=== PATIENT | female | born 1950 ===

== ENCOUNTER 2016-11-28 10:24 | Emergency (ER) | payer MEDICAID ==
[2016-11-28 10:24] VITALS: BMI 29.9
[2016-11-28 10:30] VITALS: BP 160/75; PULSE 75; RESP 16; TEMP 98.6; O2SAT 100
--- NOTE | 2016-11-28 11:07 | ED PDOC ---
HPI: Allergic Reaction Time Seen by Provider: 11/28/16 10:39 Chief Complaint (Nursing): Abnormal Skin Integrity Chief Complaint (Provider): Abnormal Skin Integrity History Per: Patient History/Exam Limitations: no limitations Onset/Duration Of Symptoms: Days (x2) Current Symptoms Are (Timing): Still Present Additional Complaint(s): 66 y/o female with a past medical history of hypertension and hypercholesterolemia who presents to the emergency department with a complaint of redness, itchiness, and warmth to the face x2 days. Reports taking Benadryl last night. Denies new perfumes, detergents, or medications. PMd: Cristiana Eagle Past Medical History Reviewed: Historical Data, Nursing Documentation, Vital Signs Vital Signs: Last Vital Signs Temp 98.6 F 11/28/16 10:30 Pulse 75 11/28/16 10:30 Resp 16 11/28/16 10:30 BP 160/75 H 11/28/16 10:30 Pulse Ox 100 11/28/16 10:30 - Medical History PMH: Anxiety, Depression, Gastritis, HTN, Hypercholesterolemia Denies: Atrial Fibrillation, Bipolar Disorder, CAD, Cardia Arrhythmia, CHF, HIV, Mitral Valve Prolapse, Paranoia, Peripheral Edema, Post Traumatic Stress Disorder, Chronic Kidney Disease, Schizophrenia - Surgical History Surgical History: Denies: Appendectomy, CABG, Carotid Endarterectomy, Cholecystectomy, Coronary Stent, Pacemaker, Tonsillectomy - Family History Family History: States: Unknown Family Hx - Social History Current smoker - smoking cessation education provided: No Alcohol: None Drugs: Denies - Home Medications Home Medications: Ambulatory Orders Medication Instructions Recorded Aspirin [Aspirin EC] 81 mg PO DAILY 03/23/14 Naproxen 500 mg PO BID PRN 03/23/14 Omeprazole 40 mg PO DAILY 08/08/14 DiphenhydrAMINE [Benadryl] 50 mg PO Q6H PRN #20 cap 11/28/16 Famotidine [Pepcid] 20 mg PO BID #20 tab 11/28/16 Prednisone 50 mg PO DAILY #4 tab 11/28/16 - Allergies Allergies/Adverse Reactions: Allergies Allergy/AdvReac Type Severity Reaction Status Date / Time iodine Allergy RASH Verified 11/28/16 11:04 iron AdvReac SHORTNESS Verified 11/28/16 11:04 OF BREATH shellfish derived AdvReac SHORTNESS Verified 11/28/16 11:04 OF BREATH Review of Systems ROS Statement: Except As Marked, All Systems Reviewed And Found Negative Skin: Positive for: Other (Itchiness, warmth, and redness of the face. No new perfumes, detergents, or medications. ) Physical Exam - Reviewed Nursing Documentation Reviewed: Yes Vital Signs Reviewed: Yes - Physical Exam Appears: Positive for: Non-toxic, No Acute Distress Head Exam: Positive for: ATRAUMATIC, NORMAL INSPECTION, NORMOCEPHALIC Skin: Positive for: Warm, Dry, Rash (Facial edema. No induration noted) ENT: Positive for: Normal ENT Inspection, Pharynx Is (Clear). Negative for: Pharyngeal Erythema Cardiovascular/Chest: Positive for: Regular Rate, Rhythm. Negative for: Murmur Respiratory: Positive for: Normal Breath Sounds. Negative for: Accessory Muscle Use, Respiratory Distress Neurologic/Psych: Positive for: Alert, Oriented (x3), Other (Speaking full sentences) - ECG O2 Sat by Pulse Oximetry: 100 (RA) Pulse Ox Interpretation: Normal Disposition - Clinical Impression Clinical Impression: Allergic reaction - Patient ED Disposition Is Patient to be Admitted: No Counseled Patient/Family Regarding: Diagnosis, Need For Followup - Disposition Disposition: Routine/Home Disposition Time: 12:00 Condition: STABLE Prescriptions: DiphenhydrAMINE [Benadryl] 50 mg PO Q6H PRN #20 cap PRN Reason: Itching / Pruritus Famotidine [Pepcid] 20 mg PO BID #20 tab Prednisone 50 mg PO DAILY #4 tab Instructions: General Allergic Reaction (ED) Forms: [employer] (Divehi) Print Language: CAMEROONIAN Medical Decision Making Medical Decision Making: Time: 11:00 Initial Impression: Facial warmth and itchiness Initial Plan: --Benadryl 50 mg PO --Pepcid 40 mg PO --Prednisone 50 mg PO --Reevaluation Time: 1200 Upon provider reevaluation patient is feeling better, is medically stable, and requires no further treatment in the ED at this time. Patient will be discharged home with Rx for Benadryl 50 mg, pepcid 20 mg, and prednisone 50 mg. Counseling was provided and all questions were answered regarding diagnosis and need for follow up with primary care doctor. There is agreement to discharge plan. Return if symptoms persist or worsen. Clinical Impression: Allergic Reaction Scribe Attestation: Documented by Elaina Yoo, acting as a scribe for Poonam Gaines MD. Provider Scribe Attestation: All medical record entries made by the Scribe were at my direction and personally dictated by me. I have reviewed the chart and agree that the record accurately reflects my personal performance of the history, physical exam, medical decision making, and the department course for this patient. I have also personally directed, reviewed, and agree with the discharge instructions and disposition.
[2016-11-28] MEDS ORDERED: Famotidine 40 MG/5 ML PO STA (11:09)
== END 2016-11-28 13:02 | disposition home or self-care (01) ==
LOC: H.ER 10:24
DX: T78.40XA Allergy, unspecified, initial encounter (principal)